=== PATIENT | female | born 1975 | race African-American/Black ===

== ENCOUNTER → 2016-11-01 | Outpatient (CLI) | payer MEDICARE ==
[~2016-11-01] MED LIST: ALBUTEROL17 G1 IH; ALBUTEROL17 GM; AMLODIPINE BESYL5 MG PO; AMOXICILLIN500 M1 PO; ASPIRIN81 M2 PO; B/P MED; CLARITIN10 MG PO; CYMBALTA PO; CYMBALTA30 MG PO; DIFLUCAN PO; FIORINAL CAPSUL1 CAP; FLEXERIL; GLUCOTROL PO; IBUPROFEN800 MG PO; LISINOPRIL PO; LISINOPRIL10 MG PO; LORTAB 5/500 TA1 TA1 PO; LORTAB 7.5-5001 TAB; LOTRIMIN 1% CR30 GM TOP; MACROBID100 M1 PO; MEDROL DOSEPAK4 MG PO; MELOXICAM15 MG PO; MOBIC PO; NAPROXEN PO; NEURONTIN PO; NEURONTIN600 MG PO; ORUDIS75 M1 PO; OXAPROZIN600 MG; PHENERGAN PO; PLAQUENIL200 MG PO; PRAVACHOL PO; PREDNISONE10 MG/DOSE PO; QVAR7.3 GM; REQUIP1 MG PO; REQUIP2 MG; RYZOLT200 MG PO; SINGULAIR PO; SKELAXIN PO; SUMATRIPTAN SU100 MG PO; TIZANIDINE HCL2 M1 PO; TOPAMAX; TOPAMAX PO; TOPAMAX50 MG PO; TYLENOL #3 PO; VICODIN 5/1 TAB 5/50 PO; VITAMIN; VITAMIN D250000 UNIT PO; VITAMIN D31000 UNIT PO; ZANAFLEX2 MG; ZYRTEC10 M2
--- NOTE | ~2016-11-01 | CR230 ---
[facility] A Service of [facility] RADIOLOGY TEXT RESULTS PATIENT: VIOLETTA RODRIGUEZ LOCATION: [facility] : 73 UNIT #: [id number] AGE: [address]: IRMA PIKE SEX: F ORDER DR: [id number] [facility] [address] [place], [place] [address] [id number] O MR#: [id number] Acc #: [id number] NAME: VIOLETTA RODRIGUEZ : 1975 SEX: F STUDY DATE/TIME: 11/01/2016 10:32 UNIT: [facility] ROOM: STUDY DESCRIPTION: CR Shoulder Min 2 View Rt Attending Physician: Patel Bailey Referring Physician: Patel Bailey Ordering Physician: Patel Bailey Primary Care Physician: Jaja Beaulieu M.D. MEDICAL IMAGING REPORT This report is preliminary unless electronic signature is present EXAM Right shoulder 4 views 11/01/2016 HISTORY Right shoulder pain and decreased range of motion for 2 weeks with no known injury. FINDINGS AP view with internal and external rotation of the shoulder girdle shows satisfactory relationship of the humeral head and glenoid fossa. The joint space is normal. There is no identifiable fracture or dislocation or bony destructive process about the shoulder girdle anatomy. The acromioclavicular joint is normal. There is no radiopaque foreign body in the region. IMPRESSION Normal shoulder. Dictated by... Josesito Sales M.D. THIS IS AN ELECTRONICALLY VERIFIED REPORT Josesito Sales M.D. at 11/01/2016 1:47 PM KRT/to TD: 11/01/2016 13:10 JOB #: [id number] MEDICAL IMAGING REPORT Page 1 of 1 COPY
== END | disposition home or self-care (01) ==
LOC: CRAD 10:13
DX: M25.511 Pain in right shoulder (principal)
CPT/HCPCS: 73030

== ENCOUNTER → 2017-01-16 | Outpatient (CLI) | payer MEDICARE, OTHER ==
--- NOTE | ~2017-01-16 | MY29 ---
[facility] A Service of [facility] & [facility] RADIOLOGY TEXT RESULTS PATIENT: VIOLETTA RODRIGUEZ LOCATION: [facility] : 73 UNIT #: [id number] AGE: [address]: Jaja Beaulieu MD SEX: F ORDER DR: [id number] [facility] [address] [place], [place] [address] [id number] O MR#: [id number] Acc #: [id number] NAME: VIOLETTA RODRIGUEZ. : 1975 SEX: F STUDY DATE/TIME: 01/16/2017 9:59 UNIT: [facility] ROOM: STUDY DESCRIPTION: MY WENDY SCREENING W/ CAD BILAT Attending Physician: Jaja Beaulieu M.D. Ordering Physician: Jaja Beaulieu M.D. Primary Care Physician: Jaja Beaulieu M.D. MEDICAL IMAGING REPORT This report is preliminary unless electronic signature is present EXAM Digital screening mammogram, 01/16/17, [facility]. HISTORY 41-year-old woman. No risk elevation. Annual screen. COMPARISON 12/28/14, 01/12/16. FINDINGS Digital imaging of each breast was completed utilizing a two-view examination of each breast in craniocaudal and mediolateral-oblique projections. Review and interpretation of digital mammograms include a second review in conjunction with FDA-approved CAD device. There is a normal parenchymal presentation bilaterally consistent with the patient's age. There are no breast masses imaged and no parenchymal asymmetry is visualized. There are no suspicious microcalcifications and I see no focal architectural disturbance. IMPRESSION Negative screening digital mammogram. One-year followup recommended. Patients over the age of 40 are entered into a reminder system with target due date for the next mammogram. A result letter will also be sent to the patient. BIRADS: 1 Negative Dictated by... Pedro Gibson M.D. THIS IS AN ELECTRONICALLY VERIFIED REPORT Pedro Gibson M.D. at 01/16/2017 3:18 PM [facility] A Service of [facility] & [facility] RADIOLOGY TEXT RESULTS PATIENT: VIOLETTA RODRIGUEZ LOCATION: [facility] : 73 UNIT #: [id number] AGE: [address]: Jaja Beaulieu MD SEX: F ORDER DR: [place] TD: 01/16/2017 14:28 JOB #: [id number] MEDICAL IMAGING REPORT Page 1 of 1 COPY
== END | disposition home or self-care (01) ==
LOC: CWCC 09:25
DX: Z12.31 Encounter for screening mammogram for malignant neoplasm of breast (principal)
CPT/HCPCS: G0202

== ENCOUNTER 2017-01-18 09:21 | Emergency (ER) | payer MEDICARE, OTHER ==
--- NOTE | ~2017-01-18 | CR72 ---
[facility] A Service of [facility] RADIOLOGY TEXT RESULTS PATIENT: VIOLETTA RODRIGUEZ LOCATION: [facility] : 73 UNIT #: [id number] AGE: [address]: Vijay Bhatia MD SEX: F ORDER DR: [id number] [place] [address] [id number] E MR#: [id number] Acc #: [id number] NAME: VIOLETTA RODRIGUEZ : 1975 SEX: F STUDY DATE/TIME: 01/18/2017 11:01 UNIT: [facility] ROOM: STUDY DESCRIPTION: CR Chest Single View Portable Attending Physician: Vijay Bhatia M.D. Ordering Physician: Vijay Bhatia M.D. Primary Care Physician: Jaja Beaulieu M.D. MEDICAL IMAGING REPORT This report is preliminary unless electronic signature is present. EXAM Portable chest COMPARISON 06/05/2015 HISTORY Fever and pain today, history of lupus FINDINGS A single AP portable view of the chest shows both lungs to be clear. The heart is normal in size. The mediastinal contour is normal. No significant bone abnormalities are seen. IMPRESSION Normal negative portable chest. Dictated by... Henrry Jenkins M.D. THIS IS AN ELECTRONICALLY VERIFIED REPORT Henrry Jenkins M.D. at 01/18/2017 4:27 PM TEV/to TD: 01/18/2017 15:50 JOB #: [id number] MEDICAL IMAGING REPORT [facility] A Service of [facility] RADIOLOGY TEXT RESULTS PATIENT: VIOLETTA RODRIGUEZ LOCATION: [facility] : 73 UNIT #: [id number] AGE: [address]: Vijay Bhatia MD SEX: F ORDER DR: Page 1 of 1
--- NOTE | ~2017-01-18 | EKG ---
PATIENT: VIOLETTA RODRIGUEZ UNIT #: [id number] Ventricular Rate: 119 BPM Atrial Rate: 119 BPM P-R Interval: 130 ms QRS Duration: 68 ms Q-T Interval: 308 ms QTC Calculation(Bezet): 433 ms P Whitakers: 34 degrees Calculated R Whitakers: 30 degrees Calculated T Whitakers: -34 degrees Diagnosis Line: Sinus tachycardia Diagnosis Line: Possible Left atrial enlargement Diagnosis Line: T wave abnormality, consider inferior ischemia Diagnosis Line: Abnormal ECG Diagnosis Line: When compared with ECG of 29-OCT-2009 18:37, Diagnosis Line: No significant change was found Diagnosis Line: Confirmed by ASHWIN BAZZI MD ([id number]) on Diagnosis Line: 01/19/2017 1:38:36 PM INTERPRETING MD: ROSE MARY GARCES
[~2017-01-18 09:21] MED LIST changes: -AMLODIPINE BESYL5 MG PO; -GLUCOTROL PO; -MELOXICAM15 MG PO; -MOBIC PO; -NEURONTIN600 MG PO; -REQUIP1 MG PO; -SUMATRIPTAN SU100 MG PO; -TIZANIDINE HCL2 M1 PO; -TYLENOL #3 PO; -VITAMIN D250000 UNIT PO
[2017-01-18] MEDS ORDERED: SUMATRIPTAN SU100 MG PO (09:34)
[2017-01-18] MEDS ORDERED: TYLENOL #3 PO (09:34)
[2017-01-18] MEDS ORDERED: REQUIP1 MG PO (09:35)
[2017-01-18] MEDS ORDERED: AMLODIPINE BESYL5 MG PO (09:35)
[2017-01-18] MEDS ORDERED: MELOXICAM15 MG PO (09:35)
[2017-01-18] MEDS ORDERED: TIZANIDINE HCL2 M1 PO (09:36)
[2017-01-18] MEDS ORDERED: GLUCOTROL PO (09:36)
[2017-01-18] MEDS ORDERED: NEURONTIN600 MG PO (09:36)
[2017-01-18] MEDS ORDERED: VITAMIN D250000 UNIT PO (09:36)
[2017-01-18] MEDS ORDERED: MOBIC PO (09:37)
[2017-01-18 10:07] LABS: BASOPHIL# 0.1 X10e3 (0-0.3); BASOPHIL% 0.4 % (0-2.5); EOSINOPHIL% 0.1 % (0.0-7.0); HEMATOCRIT 39.8 % (35.0-45.0); HEMOGLOBIN 13.3 gm/dL (12.0-16.0); LYMPHOCYTE# 1.2 X10e3 (1.0-3.5); LYMPHOCYTE% 8.2 % (17.0-45.0); MEAN CELL VOLUME 89.6 FL (83-96); MEAN CORPUSCULAR HEMOGLOBIN 29.9 PG (28-34); MEAN CORPUSCULAR HGB CONC 33.3 g/dL (30-36); MEAN PLATELET VOLUME 8.5 FL (6.5-11.5); MONOCYTE# 0.3 X10e3 (0-1.0); MONOCYTE% 2.1 % (3.0-12.0); NEUTROPHIL# 13.3 X10e3 (1.5-7.1); NEUTROPHIL% 89.2 % (40-75); PLATELET COUNT 246 X10e3 (140-420); RED BLOOD COUNT 4.45 X10e (3.90-5.30); RED CELL DISTRIBUTION WIDTH 14.6 % (11.0-15.5); WHITE BLOOD COUNT 14.9 X10e3 (4.0-10.5)
[2017-01-18 10:13] LABS: DIFF IND NO
[2017-01-18 10:19] LABS: POC - CKMB <1.0 ng/mL (0.0-7.9); POC - TROPONIN <0.05 ng/mL (<=0.05)
[2017-01-18 10:25] LABS: INFLUENZA A NEG (NEG); INFLUENZA B NEG (NEG)
[2017-01-18 10:25] LABS: ALBUMIN SERUM 3.8 g/dL (3.5-5.0); BILIRUBIN, DIRECT 0.1 mg/dL (0.0-0.2); BILIRUBIN,INDIRECT 0.7 mg/dL (0.0-0.9); BILIRUBIN,TOTAL 0.8 mg/dL (0.2-2.0); CALCIUM SERUM 8.7 mg/dL (8.4-10.2); GLOM FILT RATE Estimated 80.5 mL/min (>60); POTASSIUM 3.4 mmol/L (3.5-5.1); PROTEIN TOTAL SERUM 8.4 g/dL (6.0-8.3)
[2017-01-18 10:38] LABS: URINE APPEARANCE CLEAR; URINE BILIRUBIN NEG (NEG); URINE BLOOD TRACE-LYSED (NEG); URINE COLOR YELLOW; URINE GLUCOSE NEG (NORM); URINE KETONE NEG (NEG); URINE LEUKOCYTE ESTERASE NEG (NEG); URINE NITRATE POS (NEG); URINE PROTEIN NEG (NEG); URINE SOURCE CATH; URINE SPECIFIC GRAVITY 1.015 (1.003-1.035); URINE UROBILINOGEN 0.2 MG/DL (NORM)
[2017-01-18 10:44] LABS: CULTURE INDICATED? YES; MICRO INDICATED? YES; URINE BACTERIA 1+ (NEG); URINE RBC 0-2 /[HPF] (0-2); URINE SQUAMOUS EPITHELIAL CELL FEW /[HPF]; URINE WBC 0-2 /[HPF] (0-5)
== END 2017-01-18 16:43 ==
LOC: SED 09:21
PROVIDERS: Emergency Medicine
DX: M32.9 Systemic lupus erythematosus, unspecified (principal); Z90.89 Acquired absence of other organs; Z79.891 Long term (current) use of opiate analgesic; Z79.84 Long term (current) use of oral hypoglycemic drugs; Z79.1 Long term (current) use of non-steroidal anti-inflammatories (NSAID); Z79.899 Other long term (current) drug therapy; Z88.8 Allergy status to other drugs, medicaments and biological substances
CPT/HCPCS: 36415; 71010; 80048; 80076; 81003; 82553; 82947; 84484; 85025; 87040; 87086; 87088; 87186; 87651; 87804; 93005; 96361; 96374; 96375; 99285; J1170; J2270